=== PATIENT | female | born 1990 ===

== ENCOUNTER 2018-10-24 05:37 | Inpatient (IN) | payer OTHER ==
[~2018-10-24] VITALS: Ht 152.4 cm; Wt 61.7 kg
[2018-10-24] VITALS (17 sets, daily range): BP systolic 88–118; BP diastolic 50–84
[~2018-10-24 05:37] MED LIST: NKM
--- NOTE | 2018-10-24 06:37 | Anethesia Preoperative Eval ---
Anesthesia Pre-op PMH/ROS General Date of Evaluation: Oct 24, 2018 Anesthesiologist: Luis ASA Score: ASA 2 Mallampati Score Class I : Soft palate, uvula, fauces, pillars visible Class II: Soft palate, uvula, fauces visible Class III: Soft palate, base of uvula visible Class IV: Only hard plate visible Mallampati Classification: Class II Surgeon: Waldo Diagnosis: Bilateral buttock cellulitis Surgical Procedure: I&D Bilateral buttock Anesthesia History: none Family History: no anesthesia problems Allergies: Coded Allergies: No Known Allergies (Unverified , 10/23/18) Patient NPO?: Yes NPO Date: Oct 23, 2018 NPO Time: 1900 Past Medical History Cardiovascular: Denies: HTN, CAD, DC, valve dz, arrhythmia, other Pulmonary: Denies: asthma, COPD, STEPHANIE, other Gastrointestinal/Genitourinary: Denies: GERD, CRI, ESRD, other Neurologic/Psychiatric: Reports: depression/anxiety; Denies: dementia, CVA, TIA, other Endocrine: Denies: DM, hypothyroidism, steroids, other HEENT: Denies: cataract (L), cataract (R), glaucoma, KOOTENAI (L), KOOTENAI (R), other Hematology/Immune: Denies: anemia, DVT, bleeding disorder, other Musculoskeletal/Integumentary: Denies: OA, RA, DJD, DDD, edema, other PSxH Narrative: bilateral breast augmentation Anesthesia Pre-op Phys. Exam Physician Exam Last Vital Signs Date Time Temp Pulse Resp B/P (MAP) Pulse Ox O2 Delivery O2 Flow Rate FiO2 10/24/18 06:30 98.5 83 18 106/64 (78) 98 Constitutional: NAD Cardiovascular: RRR Respiratory: CTA Airway Exam Mallampati Score: Class II MO: full ROM: full Teeth: intact Anesthesia Pre-op A/P Labs see chart Studies Pre-op Studies: EKG - sr Risk Assessment & Plan Assessment: ASA II Plan: GA Status Change Before Surgery: No Pre-Antibiotics Drug: TBD Given Within 1 Hr of Incision: Yes Aure Holm MD Oct 24, 2018 06:37
[2018-10-24] MEDS ORDERED: fentaNYL 100 mcg/2 mL IV ONE (06:56)
[2018-10-24] MEDS ORDERED: Lidocaine 1% MPF 10mg/ml 5ml ONE (06:56)
[2018-10-24] MEDS ORDERED: Propofol 200mg/20ml IV ONE (06:56)
[2018-10-24] MEDS ORDERED: LR 1000ml ONE ×2 (07:00→15:31)
[2018-10-24] MEDS ORDERED: Sterile Water Irrig 1000ml IRRIG ONE (07:00)
[2018-10-24] MEDS ORDERED: NS Irrig 2000ml IRRIG ONE (07:00)
[2018-10-24] MEDS ORDERED: NS Irrig 1000ml ONE (07:00)
[2018-10-24] MEDS ORDERED: NeoSporin Gu Irrig 1ml Amp IRRIG ONE (07:05)
[2018-10-24] MEDS ORDERED: Bacitracin 50000 Units Vial ONE (07:05)
[2018-10-24] MEDS ORDERED: LR 1000ml 1,000 ML IVLG SCH (07:10)
[2018-10-24] MEDS ORDERED: Hydromorphone 0.5mg/0.5ml inj IVP PRN (07:15)
[2018-10-24] MEDS ORDERED: Ketorolac 30mg Inj IV PRN (07:15)
[2018-10-24] MEDS ORDERED: fentaNYL 100 mcg/2 mL IV PRN (07:15)
[2018-10-24] MEDS ORDERED: Midazolam 2mg/2ml Inj IVP PRN (07:15)
[2018-10-24] MEDS ORDERED: Metoclopramide 10mg/2ml Inj IVP PRN (07:15)
[2018-10-24] MEDS ORDERED: DiphenhydrAMINE 50mg/ml Inj IVP PRN ×2 (07:15→08:45)
[2018-10-24] MEDS ORDERED: LORazepam Inj 2mg/ml 1ml IV PRN (07:15)
[2018-10-24] MEDS ORDERED: Dexamethasone 4mg/ml vial ONE (07:16)
--- NOTE | 2018-10-24 07:27 | Pre-Procedure Note/Attestation ---
Pre-Procedure Note/Attestation Complete Prior to Procedure Planned Procedure: bilateral Procedure Narrative: staged debridement of bilateral buttock and back necrotic soft tissue. flap delay and vac placement Indications for Procedure Pre-Operative Diagnosis: b/l buttock and back necrotic soft tissues, cellulitis Attestation I attest that I discussed the nature of the procedure; its benefits; risks and complications; and alternatives (and the risks and benefits of such alternatives ), prior to the procedure, with the patient (or the patient's legal insurance claims representative). I attest that, if there was a reasonable possibility of needing a blood transfusion, the patient (or the patient's legal insurance claims representative) was given the [place] [facility] standardized written summary, pursuant to the Gregory Chandu Blood Safety Act ([place] Health and Safety Code # 1645, as amended). I attest that I re-evaluated the patient just prior to the surgery and that there has been no change in the patient's H&P, except as documented below: Stacie Haas M.D. Oct 24, 2018 07:27
--- NOTE | 2018-10-24 08:32 | Operative Note - PDOC ---
Operative Note Operative Note Date of Operation/Procedure: Oct 24, 2018 Pre-op Diagnosis: b/l buttock and back necrotic soft tissues, cellulitis Procedure: staged debridement of bilateral necrotic buttock and back necrotic soft tissue, flap delay and wound vac placement Post-op Diagnosis: same Post-op Diagnosis: same as pre-op Surgeon: lalita Fruit Dumper: rona Anesthesiologist: sivakumar Anesthesia: general Specimen: yes - bilateral buttock and back necrotic soft tissue Complications: none Condition: stable Estimated Blood Loss: volume - 250 Drains: wound vac Implant(s) used?: No Indications for Procedure symptomatic necrotic soft tissue, cellulitis Description of Procedure see dictation Stacie Haas M.D. Oct 24, 2018 08:32
[2018-10-24] MEDS: LR 1000ml 1,000 ML IV SCH ×3 (08:45→23:23)
[2018-10-24] MEDS ORDERED: Naloxone 0.4mg/ml Inj IVP PRN (08:45)
[2018-10-24] MEDS ORDERED: PCA HYDROmorphone 1mg/ml 30 ML IV PRN (08:45)
[2018-10-24] MEDS ORDERED: Rate Change PCA 1 Each MISC PRN (08:45)
[2018-10-24] MEDS ORDERED: LORazepam 1mg tab ORAL PRN (08:45)
[2018-10-24] MEDS ORDERED: PCA Education Pamphlet MISC ONE (08:45)
--- NOTE | 2018-10-24 08:53 | Immediate Post-Op Evaluation ---
Immediate Post-Op Evalulation Immediate Post-Op Evalulation Procedure: Bilateral buttock I&D Date of Evaluation: Oct 24, 2018 Time of Evaluation: 08:54 IV Fluids: 1L Blood Products: 0 Estimated Blood Loss: 25 Urinary Output: 150 Blood Pressure Systolic: 88 Blood Pressure Diastolic: 55 Pulse Rate: 83 Respiratory Rate: 16 O2 Sat by Pulse Oximetry: 100 Temperature (Fahrenheit): 97.8 Pain Score (1-10): 0 Nausea: No Vomiting: No Complications 0 Patient Status: awake, reacts, patent, none Hydration Status: adequate Drug: Ancef 1g Given Within 1 Hr of Incision: Yes Time Given: 07:30 Aure Holm MD Oct 24, 2018 08:53
--- NOTE | 2018-10-24 10:10 | NUR ---
NURSE NOTES: Patient received to 312-1 via bed s/p bilateral buttocks debridement. Patient positioned to left side with pillows. O2 2L per NC 100%, Patient alert, oriented x4, calm, family member at bedside. Right hand IV infusing as ordered, ACTIVITIES COUNSELOR (Diladud) in place, patient verbalized understanding on use. Buttocks dressings intact with wound vacs in place, no output to left side and bloody output noted to right side. Matthews draining yellow clear urine, to gravity. Bilateral SCDs on. Patient instructed on position orders. Call light in reach. Incentive spirometer ordered. Vitals stable. Will continue to assess.
--- NOTE | 2018-10-24 14:14 | History & Physical ---
History and Physical History & Physicial dictated #[id number] Steven Marie MD Oct 24, 2018 14:14
[2018-10-24] MEDS: Ampicillin/Sulbactam Sod 3 GM in NS 110 ML IVPB SCH ×2 (14:15→23:18)
[2018-10-24] MEDS: Heparin 5000 units/ml inj SUBQ SCH ×2 (14:33→23:21)
[2018-10-24] MEDS ORDERED: Tubing IV Secondary IV ONE (15:31)
--- NOTE | 2018-10-24 15:47 | NUR ---
CASE MANAGEMENT:REVIEW 10/24/18 SI: MUNDO BUTTOCK AND BACK NECROTIC SOFT TISSUES, CELLULITIS 98.5 83 18 106/64 98% ON RA IS; TO SURGERY: STAGED DEBRIDEMENT, FLAP DELAY AND WOUND VAC PLACEMENT CHILD ADOLESCENT PSYCHIATRIST DILAUDID IV AMPICILLIN Q8HRS HEPARIN SQ Q8HRS : TO MED/SURG UNIT 3 [facility] MET
[2018-10-24] MEDS: PCA shift volume MISC SCH (19:00)
--- NOTE | 2018-10-24 19:00 | History and Physical Report ---
DATE OF ADMISSION: 10/24/2018 HISTORY OF PRESENT ILLNESS: This is a 28-year-old female with history of silicone injections over her gluteal area with chronic lower back pain, who was admitted for bilateral buttocks incision and drainage. The patient underwent bilateral buttocks incision and drainage and had some cellulitis and pain over lower gluteal region. She is on a SAMPLE PROCESSOR pump and her pain is moderately controlled. The patient apparently has a longstanding history of lower back pain and gluteal pain as well as weakness in her legs at times since having these silicone injections. PAST MEDICAL HISTORY: None. PAST SURGICAL HISTORY: Breast augmentation and silicone injections in the gluteal region. PAST SOCIAL HISTORY: The patient smokes marijuana. No cigarettes. Alcohol occasionally. No other drugs. ALLERGIES: No known drug allergies. MEDICATIONS: None. REVIEW OF SYSTEMS: Twelve-point review of systems negative except for pertinent positives as mentioned above. PHYSICAL EXAMINATION: VITAL SIGNS: Temperature is 98.7, pulse is 69, respiratory rate 19, blood pressure 99/62, O2 saturation is 100% on room air. GENERAL: No acute distress. The patient is alert, awake, and oriented x3. HEENT: Normocephalic/atraumatic. NECK: Supple. No JVD. LUNGS: Clear to auscultation bilaterally. No crackles, rhonchi, or rales. CARDIOVASCULAR: Regular rate and rhythm. Normal S1, S2. ABDOMEN: Soft, nontender, and nondistended. EXTREMITIES: No clubbing, cyanosis, or edema. SKIN: Gluteal region, the patient has a wound VAC over her gluteal region with no bleeding. She does have some tenderness to palpation and a little bit of mild swelling bilaterally. LABORATORY DATA: No laboratories. ASSESSMENT: Bilateral gluteal and lower back necrotic soft tissue and cellulitis, status post staged debridement of bilateral necrotic gluteal tissue and lower back necrotic soft tissue with wound VAC placement. PLAN: 1. Med/Surg. 2. Plastic Surgery following. 3. IV fluids NS at 125 mL/hour. 4. The patient's pain is under control with SAMPLE PROCESSOR pump. 5. Antibiotics - ampicillin/sulbactam. 6. We will order blood markers for tissue necrosis. 7. Plan for staged debridement of wound on Sunday. Steven Marie MD DR: Shai JOB#: [id number] CC:
--- NOTE | 2018-10-24 19:55 | NUR ---
HAND-OFF: Report given to Ayaz GONZALES, pt in stable condition. Total would vac output right side:250ml Total wound vac output left side: 150ml.
[2018-10-25] VITALS: BP 97/51
--- NOTE | 2018-10-25 | NUR ---
NURSE NOTES:Patient received from Ayaz Damon patient in bed A/A/AOX4. family at bedside . patient denies any pain at this time . no sob/no n/v noted. patient on O2 2 liters via n/c in place . RH #20 LR @ 125 CC/HR. infusing well patient on MIG TIG WELDER( Dilaudid in place. patient instructed to push the button when needed. patient verbalized understanding. bilateral buttock dressing C/D/ I with wound vac in placed . right 125 mmHg - mild dry and intact Sero sanguinous drainage noted and left 124 mmHg - mild dry and intact no output ,patient on scds in place . patient encourage to use IS . Patient tolerated well .call light within reach . bed in low position at all times . will continue to monitor .
--- NOTE | 2018-10-25 | NUR ---
MARCELINA MOTORCYCLE REPAIR SHOP SUPERVISOR
[2018-10-25 04:00] VITALS: BP 98/61
[2018-10-25] MEDS: Ampicillin/Sulbactam Sod 3 GM in NS 110 ML IVPB SCH ×3 (05:30→22:28)
[2018-10-25] MEDS: Heparin 5000 units/ml inj SUBQ SCH ×3 (05:31→22:28)
--- NOTE | 2018-10-25 06:00 | NUR ---
NURSE NOTES: Patient bilateral buttocks dressing C/D/I With wound vac on the right draining serosanguineous 250 cc output and on the left draining serosanguineous output 380cc. zamora cath d/cd 1,680 cc
--- NOTE | 2018-10-25 07:25 | NUR ---
HAND-OFF: Report given to Dee Dee DamonAND Endorsed to follow up Patient voiding.
[2018-10-25] MEDS: PCA shift volume MISC SCH ×2 (07:28→19:21)
[2018-10-25 07:36] LABS: BASOPHILS % (AUTO) 0.7 % (0.0-2.0); EOSINOPHILS % (AUTO) 0.4 % (0.0-3.0); HEMATOCRIT 29.4 % (37.0-47.0); HEMOGLOBIN 9.9 G/DL (12.0-16.0); LYMPHOCYTES % (AUTO) 18.7 % (20.0-45.0); MEAN CORPUSCULAR VOLUME 95 FL (80-99); MONOCYTES % (AUTO) 8.8 % (1.0-10.0); NEUTROPHILS % (AUTO) 71.4 % (45.0-75.0); PLATELET COUNT 242 K/UL (150-450); RED BLOOD COUNT 3.11 M/UL (4.20-5.40); RED CELL DISTRIBUTION WIDTH 11.4 % (11.6-14.8); WHITE BLOOD COUNT 9.2 K/UL (4.8-10.8)
[2018-10-25 07:49] LABS: ANION GAP 5 mmol/L (5-15); BLOOD UREA NITROGEN 10 mg/dL (7-18); CALCIUM 8.1 MG/DL (8.5-10.1); CARBON DIOXIDE 29 MMOL/L (21-32); CHLORIDE 106 MMOL/L (98-107); CREATININE 0.9 MG/DL (0.55-1.30); POTASSIUM 3.6 MMOL/L (3.5-5.1); SODIUM 140 MMOL/L (136-145)
[2018-10-25 08:00] VITALS: BP 131/76
--- NOTE | 2018-10-25 08:00 | NUR ---
NURSE NOTES: Received report from Kelly ALVAREZ. pt a/a/o x4 laying in bed with no signs of distress or other issues at this time. bilateral wound vacs in place draining well per production supervisor off shift nurse total out put on the right side #1: 250ml, left side #2: 380ml. total Zamora output: 1680ml. Jesse GONZALES removed zamora cath at 0700. RN will monitor for post void. Iv on the right hand gauge #20 running LR @125ml. METAL FABRICATING INSPECTOR in place with Dilaudid, total syringe: 23ml. pt in a regular diet, pt tolerated well with no n/v. call light within reach. bed in lowest position. side rales up x2. I boyfriend at bedside. I will f/u as needed.
[2018-10-25] MEDS: LR 1000ml 1,000 ML IV SCH ×2 (08:45→16:45)
--- NOTE | 2018-10-25 09:15 | Pre-Procedure Note/Attestation ---
Pre-Procedure Note/Attestation Indications for Procedure Pre-Operative Diagnosis: b/l buttock and back necrotic soft tissues, cellulitis Attestation I attest that I discussed the nature of the procedure; its benefits; risks and complications; and alternatives (and the risks and benefits of such alternatives ), prior to the procedure, with the patient (or the patient's legal metals sales representative). I attest that, if there was a reasonable possibility of needing a blood transfusion, the patient (or the patient's legal metals sales representative) was given the [facility] standardized written summary, pursuant to the Gregory Chandu Blood Safety Act ([place] Health and Safety Code # 1645, as amended). I attest that I re-evaluated the patient just prior to the surgery and that there has been no change in the patient's H&P, except as documented below: Stacie Haas M.D. Oct 25, 2018 09:15
--- NOTE | 2018-10-25 09:17 | General Progress Note ---
Subjective Date patient seen: Oct 25, 2018 Time patient seen: 09:00 Allergies: Coded Allergies: No Known Allergies (Unverified , 10/23/18) Subjective pt doing well; reports resolution of preop local and systemic sxs (+) OOB AF,VSS PE: flaps viable; (-) collections (-)signs infections VACs appropraite H/H 08/13 A/P 1. cont IV abx, PHOTOGRAPHER LITHOGRAPHIC, OOB 2. freq position changes 3. cont vacs 4. daily labs 5. to OR sunday for staged debridement and flap closure over drains; NPO/IVF Sun at [place] Objective Last 24 Hour Vital Signs Date Time Temp Pulse Resp B/P (MAP) Pulse Ox O2 Delivery O2 Flow Rate FiO2 10/25/18 08:00 98.0 79 19 131/76 (94) 97 10/25/18 04:00 18 10/25/18 04:00 98.6 59 18 98/61 (73) 100 10/25/18 00:00 19 10/25/18 00:00 98.0 66 18 97/51 (66) 98 10/24/18 21:00 Room Air 10/24/18 20:00 19 10/24/18 20:00 97.7 65 19 110/55 (73) 97 10/24/18 16:00 98.2 90 19 100/54 (69) 98 10/24/18 12:40 98.4 84 19 106/69 (81) 99 10/24/18 11:40 98.7 69 19 99/62 (74) 100 10/24/18 11:10 98.7 65 18 88/55 (66) 100 10/24/18 10:42 19 10/24/18 10:40 98.5 66 19 109/69 (82) 100 10/24/18 10:25 99.2 66 19 105/70 (82) 100 10/24/18 10:10 97.7 65 18 113/72 (86) 100 10/24/18 10:05 19 10/24/18 09:55 97.8 74 18 102/65 99 Nasal Cannula 3 10/24/18 09:50 97.8 10/24/18 09:50 15 10/24/18 09:40 79 16 100/57 99 Nasal Cannula 3 10/24/18 09:35 18 10/24/18 09:30 72 15 111/63 99 Nasal Cannula 3 10/24/18 09:20 93 18 118/84 99 Nasal Cannula 3 10/24/18 09:20 18 Intake and Output 10/24/18 10/25/18 19:00 07:00 Intake Total 2375 ml 2455 ml Output Total 210 ml 2315 ml Balance 2165 ml 140 ml Intake Oral 1000 ml IV Total 2375 ml 1455 ml Output Urine Total 150 ml 1680 ml Drainage Total 10 ml 635 ml Estimated Blood Loss 50 ml Laboratory Tests 10/25/18 07:00: White Blood Count 9.2, Red Blood Count 3.11L, Hemoglobin 9.9L, Hematocrit 29.4L , Mean Corpuscular Volume 95, Mean Corpuscular Hemoglobin 31.7H, Mean Corpuscular Hemoglobin Concent 33.6, Red Cell Distribution Width 11.4L, Platelet Count 242, Mean Platelet Volume 7.3, Neutrophils (%) (Auto) 71.4, Lymphocytes (%) (Auto) 18.7L, Monocytes (%) (Auto) 8.8, Eosinophils (%) (Auto) 0.4, Basophils (%) (Auto) 0.7, Sodium Level 140, Potassium Level 3.6, Chloride Level 106, Carbon Dioxide Level 29, Anion Gap 5, Blood Urea Nitrogen 10, Creatinine 0.9, Estimat Glomerular Filtration Rate > 60, Glucose Level 89, Calcium Level 8.1L Height (Feet): 5 Height (Inches): 0.00 Weight (Pounds): 123 Stacie Haas M.D. Oct 25, 2018 09:17
--- NOTE | 2018-10-25 10:00 | NUR ---
NURSE NOTES: During rounds, pt was able to void with no issues. we will f/u as needed.
[2018-10-25 12:00] VITALS: BP 105/62
--- NOTE | 2018-10-25 15:16 | 48 Hour Post Anesthesia Eval ---
Post Anesthesia Evaluation Procedure: Bilateral buttock I&D Date of Evaluation: Oct 25, 2018 Time of Evaluation: 15:15 Blood Pressure Systolic: 105 0: 72 Pulse Rate: 68 Respiratory Rate: 22 Temperature (Fahrenheit): 97.6 O2 Sat by Pulse Oximetry: 98 Airway: patent Nausea: No Vomiting: No Pain Intensity: 2 Hydration Status: adequate Cardiopulmonary Status: stable Mental Status/LOC: patient returned to baseline Follow-up Care/Observations: n/a Post-Anesthesia Complications: none Follow-up care needed: N/A Filipe Renteria MD Oct 25, 2018 15:16
[2018-10-25 16:00] VITALS: BP 92/57
--- NOTE | 2018-10-25 19:30 | NUR ---
NURSE NOTES: Received patient in bed, awake, alert, oriented, on a BUCKLE INSPECTOR pump w Dilaudid, tolerating well, patient is in no acute distress, on RA, ambulatory, has bilateral wound vac. Bed is in low position, locked and alarm is on, call light is within reach. Will continue to monitor for safety and comfort.
--- NOTE | 2018-10-25 20:04 | NUR ---
HAND-OFF: Report given to Christi GONZALES, pt in stable condition. total wound vac right#1: 150ml total wound vac left#2:125ml - During my shift pt was able to ambulate around the unit x2 with steady gait.
[2018-10-25 20:41] VITALS: BP 112/57
[2018-10-26] VITALS: BP 108/59
[2018-10-26] MEDS: LR 1000ml 1,000 ML IV SCH ×4 (00:42→22:29)
--- NOTE | 2018-10-26 01:01 | Internal Med Progress Note ---
Subjective Physician Name CynthiaSteven Attending Physician Stacie Haas M.D. Current Medications Medications (Trade) Dose Ordered Sig/Jong Route PRN Reason Start Time Stop Time Status Last Admin Dose Admin Ampicillin Sodium/ Sulbactam Sodium 3 gm/Sodium Chloride 110 ml @ 220 mls/hr Q8HR IVPB 10/24/18 14:00 10/31/18 13:59 10/25/18 22:28 Diphenhydramine HCl (Benadryl) 25 mg Q6H PRN IVP Itching/Pruritis 10/24/18 08:45 10/26/18 08:44 Heparin Sodium (Porcine) (Heparin 5000 units/ml) 5,000 units EVERY 8 HOURS SUBQ 10/24/18 14:00 11/23/18 13:59 10/25/18 22:28 Hydromorphone HCl 30 ml @ 0 mls/hr Q24H PRN IV For Pain 10/24/18 08:45 10/26/18 08:44 10/24/18 09:20 Lactated Ringer's 1,000 ml @ 125 mls/hr Q8H IV 10/24/18 08:45 11/23/18 08:44 10/26/18 00:42 Lorazepam (Ativan) 1 mg Q4H PRN ORAL Muscle Spasm 10/24/18 08:45 10/26/18 08:44 Miscellaneous Medication (ZONING ADMINISTRATOR Rate Change) 1 ea DAILY PRN MISC rate change 10/24/18 08:45 10/26/18 08:44 Miscellaneous Medication (ZONING ADMINISTRATOR shift volume) 1 ea Q12HR@0700,1900 MISC 10/24/18 19:00 10/26/18 18:59 10/25/18 19:21 Naloxone HCl (Narcan) 0.1 mg Q1M PRN IVP RR<10/min OR SBP<90 mmHg 10/24/18 08:45 10/26/18 08:44 Ondansetron HCl (Zofran) 4 mg Q6H PRN IVP Nausea & Vomiting 10/24/18 08:45 10/26/18 08:44 10/25/18 11:08 Temazepam (Restoril) 7.5 mg HSPRN PRN ORAL Insomnia 10/24/18 08:45 10/26/18 08:44 10/25/18 23:52 Allergies: Coded Allergies: No Known Allergies (Unverified , 10/23/18) All Systems: reviewed and negative except above - mild glutealpain Objective Last Vital Signs Date Time Temp Pulse Resp B/P (MAP) Pulse Ox O2 Delivery O2 Flow Rate FiO2 10/26/18 00:17 18 10/26/18 00:00 98.1 57 108/59 (75) 98 10/25/18 21:00 Room Air 10/24/18 09:55 3 General Appearance: no apparent distress, alert EENT: normal ENT inspection, TMs normal Neck: supple, normal inspection Cardiovascular: regular rhythm, regularly irregular Respiratory/Chest: lungs clear, normal breath sounds Abdomen: non tender, soft Extremities: normal range of motion, non-tender Skin: other - wound vac over gluteal wound Laboratory Tests Test 10/25/18 07:00 White Blood Count 9.2 K/UL (4.8-10.8) Red Blood Count 3.11 M/UL (4.20-5.40) L Hemoglobin 9.9 G/DL (12.0-16.0) L Hematocrit 29.4 % (37.0-47.0) L Mean Corpuscular Volume 95 FL (80-99) Mean Corpuscular Hemoglobin 31.7 PG (27.0-31.0) H Mean Corpuscular Hemoglobin Concent 33.6 G/DL (32.0-36.0) Red Cell Distribution Width 11.4 % (11.6-14.8) L Platelet Count 242 K/UL (150-450) Mean Platelet Volume 7.3 FL (6.5-10.1) Neutrophils (%) (Auto) 71.4 % (45.0-75.0) Lymphocytes (%) (Auto) 18.7 % (20.0-45.0) L Monocytes (%) (Auto) 8.8 % (1.0-10.0) Eosinophils (%) (Auto) 0.4 % (0.0-3.0) Basophils (%) (Auto) 0.7 % (0.0-2.0) Sodium Level 140 MMOL/L (136-145) Potassium Level 3.6 MMOL/L (3.5-5.1) Chloride Level 106 MMOL/L (98-107) Carbon Dioxide Level 29 MMOL/L (21-32) Anion Gap 5 mmol/L (5-15) Blood Urea Nitrogen 10 mg/dL (7-18) Creatinine 0.9 MG/DL (0.55-1.30) Estimat Glomerular Filtration Rate > 60 mL/min (>60) Glucose Level 89 MG/DL (74-106) Calcium Level 8.1 MG/DL (8.5-10.1) L Intake and Output 10/25/18 10/26/18 19:00 07:00 Intake Total 1055 ml 735 ml Balance 1055 ml 735 ml Intake Oral 930 ml IV Total 125 ml 735 ml # Voids 2 Assessment/Plan Assessment/Plan ASSESSMENT: Bilateral gluteal and lower back necrotic soft tissue and cellulitis, status post staged debridement of bilateral necrotic gluteal tissue and lower back necrotic soft tissue with wound VAC placement. PLAN: 1. Med/Surg. 2. Plastic Surgery following. 3. IV fluids NS at 125 mL/hour. 4. The patient's pain is under control with ZONING ADMINISTRATOR pump. 5. Antibiotics - ampicillin/sulbactam. 6. We will order blood markers for tissue necrosis. 7. Plan for staged debridement of wound on Sunday. Steven Marie MD Oct 26, 2018 01:01
[2018-10-26 04:00] VITALS: BP 93/51
[2018-10-26] MEDS: Ampicillin/Sulbactam Sod 3 GM in NS 110 ML IVPB SCH ×3 (05:52→22:20)
[2018-10-26] MEDS: Heparin 5000 units/ml inj SUBQ SCH ×3 (05:54→22:21)
[2018-10-26] MEDS: PCA shift volume MISC SCH ×2 (07:20→19:00)
--- NOTE | 2018-10-26 07:37 | NUR ---
HAND-OFF: Report given to Osito GONZALES.
[2018-10-26 07:38] LABS: BASOPHILS % (AUTO) 1.1 % (0.0-2.0); EOSINOPHILS % (AUTO) 2.8 % (0.0-3.0); HEMATOCRIT 28.2 % (37.0-47.0); HEMOGLOBIN 9.5 G/DL (12.0-16.0); LYMPHOCYTES % (AUTO) 36.3 % (20.0-45.0); MEAN CORPUSCULAR VOLUME 95 FL (80-99); MONOCYTES % (AUTO) 9.6 % (1.0-10.0); NEUTROPHILS % (AUTO) 50.2 % (45.0-75.0); PLATELET COUNT 228 K/UL (150-450); RED BLOOD COUNT 2.97 M/UL (4.20-5.40); RED CELL DISTRIBUTION WIDTH 11.3 % (11.6-14.8)
--- NOTE | 2018-10-26 07:43 | NUR ---
NURSE NOTES: Received pt from JANET Barraza, pt was eating no acute distress, pain management with BANKRUPTCY LAW SPECIALIST, wound vac in place, call light w/in reach.
[2018-10-26 07:56] LABS: ANION GAP 9 mmol/L (5-15); BLOOD UREA NITROGEN 9 mg/dL (7-18); CALCIUM 8.4 MG/DL (8.5-10.1); CARBON DIOXIDE 28 MMOL/L (21-32); CHLORIDE 103 MMOL/L (98-107); POTASSIUM 3.5 MMOL/L (3.5-5.1); SODIUM 140 MMOL/L (136-145)
[2018-10-26 08:00] VITALS: BP 85/56
[2018-10-26] MEDS ORDERED: PCA HYDROmorphone 1mg/ml 30 ML IV PRN (09:27)
[2018-10-26] MEDS ORDERED: Rate Change PCA 1 Each MISC PRN (09:30)
[2018-10-26] MEDS ORDERED: LORazepam 1mg tab ORAL PRN (09:30)
[2018-10-26] MEDS ORDERED: Naloxone 0.4mg/ml Inj IVP PRN (09:30)
[2018-10-26] MEDS ORDERED: PCA Education Pamphlet MISC ONE (09:30)
[2018-10-26] MEDS ORDERED: DiphenhydrAMINE 50mg/ml Inj IVP PRN (09:30)
[2018-10-26 12:00] VITALS: BP 110/60
[2018-10-26 16:00] VITALS: BP 110/60
[2018-10-26 20:00] VITALS: BP 113/49
--- NOTE | 2018-10-26 20:30 | NUR ---
HAND-OFF: Report given to JANET Batista, pt is stable condition.
--- NOTE | 2018-10-26 20:35 | NUR ---
NURSE NOTES: patient received. patient in no acute distress at this time. patient complains of no pain at this time. patient awake and oriented x4. COORDINATE MEASURING MACHINE OPERATOR intact and patient educated on COORDINATE MEASURING MACHINE OPERATOR use. IV intact and patent. wound vac on bilat buttocks draining and intact. bed in lowest position adn locked. call lgith within reach. will continue to monitor.
[2018-10-27] MEDS: LR 1000ml 1,000 ML IV SCH ×4 (02:51→21:46)
[2018-10-27 04:00] VITALS: BP 102/45
[2018-10-27] MEDS: Heparin 5000 units/ml inj SUBQ SCH ×3 (05:44→21:39)
[2018-10-27] MEDS: Ampicillin/Sulbactam Sod 3 GM in NS 110 ML IVPB SCH ×3 (05:45→21:35)
[2018-10-27 07:28] LABS: BASOPHILS % (AUTO) 0.6 % (0.0-2.0); EOSINOPHILS % (AUTO) 2.7 % (0.0-3.0); HEMATOCRIT 28.5 % (37.0-47.0); HEMOGLOBIN 9.9 G/DL (12.0-16.0); LYMPHOCYTES % (AUTO) 21.6 % (20.0-45.0); MEAN CORPUSCULAR VOLUME 94 FL (80-99); MONOCYTES % (AUTO) 8.1 % (1.0-10.0); PLATELET COUNT 234 K/UL (150-450); RED BLOOD COUNT 3.05 M/UL (4.20-5.40); RED CELL DISTRIBUTION WIDTH 11.5 % (11.6-14.8); WHITE BLOOD COUNT 6.2 K/UL (4.8-10.8)
[2018-10-27] MEDS: PCA shift volume MISC SCH ×2 (07:30→19:19)
--- NOTE | 2018-10-27 07:34 | NUR ---
NURSE NOTES: awake/alert. pain scale 6/10. on appliance line assembler dilaudid. wound vac bilateral buttocks in place draining sersanguinous drainage. in no apparent distress.
--- NOTE | 2018-10-27 07:39 | NUR ---
HAND-OFF: Report given to JANET arnett.
[2018-10-27 08:00] VITALS: BP 99/59
[2018-10-27 08:04] LABS: ANION GAP 8 mmol/L (5-15); BLOOD UREA NITROGEN 9 mg/dL (7-18); CALCIUM 8.7 MG/DL (8.5-10.1); CARBON DIOXIDE 27 MMOL/L (21-32); CHLORIDE 103 MMOL/L (98-107); CREATININE 0.9 MG/DL (0.55-1.30); POTASSIUM 3.7 MMOL/L (3.5-5.1); SODIUM 138 MMOL/L (136-145)
--- NOTE | 2018-10-27 09:27 | NUR ---
NURSE NOTES: OOB AMBUALTED OUT IN THE BENDER WITH ASSIST TOLERATED.
[2018-10-27] MEDS ORDERED: LR 1000ml ONE (09:37)
[2018-10-27 12:00] VITALS: BP 93/57
--- NOTE | 2018-10-27 15:12 | NUR ---
NURSE NOTES: ambulated out im the negrete with assist tolerated.
[2018-10-27 16:00] VITALS: BP 97/63
--- NOTE | 2018-10-27 16:12 | NUR ---
CASE MANAGEMENT:REVIEW 10/26/2018 SI: MUNDO BUTTOCK AND BACK NECROTIC SOFT TISSUES, CELLULITIS T 98.9 HR 77 RR 18 B/P 85/56 SATS 99% ON RA CA 8.4 IS:LR @ 125 mL/HR EPIDEMIOLOGIST PER PARAMETERS UNASYN IV Q8H : TO MED/SURG UNIT 3 [facility] 10/27/2018 SI: MUNDO BUTTOCK AND BACK NECROTIC SOFT TISSUES, CELLULITIS T 98.5 HR 65 RR 18 B/P 93/57 SATS 99% ON RA LABS WNL IS:LR @ 125 mL/HR EPIDEMIOLOGIST PER PARAMETERS UNASYN IV Q8H MED/SURG PLAN OF CARE: PAIN MANAGEMENT IV ANTIBx
--- NOTE | 2018-10-27 19:23 | NUR ---
HAND-OFF: Report given to lc rios rn.
--- NOTE | 2018-10-27 19:30 | NUR ---
NURSE NOTES: Received report & pt JANET Centeno. Pt lying in bed, a&ox4, in room air. No s/s of acute distress & c/o 6/10 pain at this time. SHIRT OPERATOR settings checked with AM nurse. IV site intact with IVF running as ordered. Wound vac x 2 intact & draining serosanguineous output, both to continuous suction @ 125 mmHg. Surgical dressing & wound vac dressing C/D/I. Bed in lowest position, SHIRT OPERATOR pump & call light within reach. Will continue to monitor. Addendum: 10/28/18 at 0326 by Carina Restrepo RN CORRECTION: #1 on Left 100 mmHg & #2 on Right 125 mmHg
[2018-10-27 20:00] VITALS: BP 124/74
--- NOTE | 2018-10-27 20:46 | General Progress Note ---
Subjective Date patient seen: Oct 27, 2018 Time patient seen: 20:30 Allergies: Coded Allergies: No Known Allergies (Unverified , 10/23/18) Subjective pt doing well; reports resolution of preop local and systemic sxs (+) OOB AF,VSS PE: flaps viable; (-) collections (-)signs infections VACs appropraite H/H 1030 and stable A/P 1. cont IV abx, DROP WIRE ALIGNER, OOB 2. freq position changes 3. cont vacs 4. to OR in am for staged debridement and flap closure over drains; NPO/IVF Sun at [place] [address]. dr rea will be covering for me from 10/28/18 on 6. pt to be d/c home on sun with home provena vac, 4 jps, anita teaching, cipro 500 bid x 14 days and percocet x 30 pills; no sitting; only 4 hrs /24 hrs on buttocks, max 2 hrs at a time 7. pt to follow up wt dr rea on sat 11/02/18 Objective Last 24 Hour Vital Signs Date Time Temp Pulse Resp B/P (MAP) Pulse Ox O2 Delivery O2 Flow Rate FiO2 10/27/18 16:00 18 10/27/18 16:00 99.5 63 18 97/63 (74) 98 18 10/27/18 12:00 18 10/27/18 12:00 98.5 65 18 93/57 (69) 99 10/27/18 08:11 Room Air 10/27/18 08:00 18 10/27/18 08:00 98.9 69 18 99/59 (72) 100 10/27/18 04:00 18 10/27/18 04:00 98.5 74 18 102/45 (64) 99 10/27/18 00:00 18 10/26/18 21:00 Room Air Intake and Output 10/26/18 10/27/18 19:00 07:00 Intake Total 260 ml Output Total 135 ml 170 ml Balance 125 ml -170 ml Intake Oral 260 ml Drainage Total 135 ml 170 ml # Voids 3 # Bowel Movements 1 Laboratory Tests 10/27/18 05:52: White Blood Count 6.2, Red Blood Count 3.05L, Hemoglobin 9.9L, Hematocrit 28.5L , Mean Corpuscular Volume 94, Mean Corpuscular Hemoglobin 32.5H, Mean Corpuscular Hemoglobin Concent 34.7, Red Cell Distribution Width 11.5L, Platelet Count 234, Mean Platelet Volume 6.7, Neutrophils (%) (Auto) 67.0, Lymphocytes (%) (Auto) 21.6, Monocytes (%) (Auto) 8.1, Eosinophils (%) (Auto) 2.7, Basophils (%) (Auto) 0.6, Sodium Level 138, Potassium Level 3.7, Chloride Level 103, Carbon Dioxide Level 27, Anion Gap 8, Blood Urea Nitrogen 9, Creatinine 0.9, Estimat Glomerular Filtration Rate > 60, Glucose Level 79, Calcium Level 8.7 Height (Feet): 5 Height (Inches): 0.00 Weight (Pounds): 123 Stacie Haas M.D. Oct 27, 2018 20:46
[2018-10-28] VITALS (17 sets, daily range): BP systolic 90–118; BP diastolic 52–69
[2018-10-28] MEDS: LR 1000ml 1,000 ML IV SCH ×4 (00:35→23:55)
[2018-10-28] MEDS: Heparin 5000 units/ml inj SUBQ SCH ×3 (06:00→21:03)
[2018-10-28] MEDS: Ampicillin/Sulbactam Sod 3 GM in NS 110 ML IVPB SCH ×3 (06:23→21:01)
[2018-10-28] MEDS ORDERED: Hydromorphone 0.5mg/0.5ml inj IVP PRN (06:30)
[2018-10-28] MEDS ORDERED: fentaNYL 100 mcg/2 mL IV PRN (06:30)
[2018-10-28] MEDS ORDERED: LORazepam Inj 2mg/ml 1ml IV PRN (06:30)
[2018-10-28] MEDS ORDERED: DiphenhydrAMINE 50mg/ml Inj IVP PRN ×2 (06:30→12:04)
[2018-10-28] MEDS ORDERED: HYDROcodone/Acetamin 7.5/325 tab ORAL PRN (06:30)
[2018-10-28] MEDS ORDERED: oxyCODONE HCL/Acetaminophen 5/325mg ORAL PRN (06:30)
[2018-10-28] MEDS ORDERED: Metoclopramide 10mg/2ml Inj IVP PRN (06:30)
[2018-10-28] MEDS ORDERED: Atropine Sulfate 0.4mg/ml inj IVP PRN (06:30)
[2018-10-28] MEDS ORDERED: Midazolam 2mg/2ml Inj IVP PRN (06:30)
[2018-10-28] MEDS ORDERED: Meperidine 50mg/ml Inj(FOR RIGORS ONLY) IVP PRN (06:30)
[2018-10-28] MEDS ORDERED: LR 1000ml 1,000 ML IVLG SCH (06:30)
[2018-10-28] MEDS ORDERED: Norco 5mg/325mg tab ORAL PRN (06:30)
--- NOTE | 2018-10-28 06:32 | Immediate Post-Op Evaluation ---
Immediate Post-Op Evalulation Immediate Post-Op Evalulation Procedure: Bilateral Buttock Closure, Stage 2 Date of Evaluation: Oct 28, 2018 Time of Evaluation: 10:05 IV Fluids: 1000 LR Blood Products: 0 Estimated Blood Loss: 150 Urinary Output: 0 Blood Pressure Systolic: 111 Blood Pressure Diastolic: 53 Pulse Rate: 79 Respiratory Rate: 16 O2 Sat by Pulse Oximetry: 100 Temperature (Fahrenheit): 97.9 Pain Score (1-10): 2 Nausea: No Vomiting: No Complications 0 Patient Status: awake, reacts, patent, extubated, none Hydration Status: adequate Dru Gram Ancef IV Given Within 1 Hr of Incision: Yes Time Given: 07:21 Rigoberto Luciano MD Oct 28, 2018 06:32
[2018-10-28] MEDS ORDERED: Zemuron 50mg/5ml Inj IV ONE (06:38)
--- NOTE | 2018-10-28 06:44 | NUR ---
NURSE NOTES: Pt picked up by Wilfredo roldan; ID band verified. pre-op checklist signed.
[2018-10-28] MEDS ORDERED: Dexamethasone 4mg/ml vial ONE (06:54)
[2018-10-28] MEDS ORDERED: Sodium Chloride 10ml vial INJ ONE (06:54)
[2018-10-28] MEDS ORDERED: Bacitracin 50000 Units Vial ONE ×2 (06:54→08:17)
[2018-10-28] MEDS ORDERED: Lidocaine 1% MPF 10mg/ml 5ml ONE (06:54)
[2018-10-28] MEDS ORDERED: Lidocaine 1% Plain 30 ml INJ ONE (06:55)
[2018-10-28] MEDS ORDERED: fentaNYL 100 mcg/2 mL IV ONE (06:55)
[2018-10-28] MEDS ORDERED: Propofol 1,000mg/ 100ml btl IV ONE (07:00)
[2018-10-28] MEDS: PCA shift volume MISC SCH ×2 (07:00→19:15)
[2018-10-28] MEDS ORDERED: LR 1000ml ONE ×2 (07:00→15:01)
[2018-10-28] MEDS ORDERED: Acetaminophen (Non formulary) 100 ML IV ONE (07:00)
[2018-10-28] MEDS ORDERED: oxyCONTIN 10mg tab ORAL PRN (07:15)
[2018-10-28] MEDS ORDERED: Naloxone 0.4mg/ml Inj IVP PRN (07:15)
[2018-10-28] MEDS ORDERED: LR 1000ml 1,000 ML IV SCH (07:15)
--- NOTE | 2018-10-28 07:30 | NUR ---
HAND-OFF: Report given to Charisse Foster RN.
--- NOTE | 2018-10-28 07:54 | NUR ---
NURSE NOTES: Received report from JANET Lim. Patient already off the unit.
[2018-10-28 08:10] LABS: BASOPHILS % (AUTO) 0.9 % (0.0-2.0); EOSINOPHILS % (AUTO) 3.9 % (0.0-3.0); HEMATOCRIT 30.5 % (37.0-47.0); HEMOGLOBIN 10.2 G/DL (12.0-16.0); LYMPHOCYTES % (AUTO) 24.9 % (20.0-45.0); MEAN CORPUSCULAR VOLUME 95 FL (80-99); NEUTROPHILS % (AUTO) 60.4 % (45.0-75.0); PLATELET COUNT 285 K/UL (150-450); RED BLOOD COUNT 3.22 M/UL (4.20-5.40); RED CELL DISTRIBUTION WIDTH 11.5 % (11.6-14.8); WHITE BLOOD COUNT 5.7 K/UL (4.8-10.8)
[2018-10-28 08:23] LABS: ANION GAP 6 mmol/L (5-15); BLOOD UREA NITROGEN 9 mg/dL (7-18); CALCIUM 8.9 MG/DL (8.5-10.1); CARBON DIOXIDE 29 MMOL/L (21-32); CHLORIDE 104 MMOL/L (98-107); CREATININE 0.9 MG/DL (0.55-1.30); POTASSIUM 4.1 MMOL/L (3.5-5.1); SODIUM 139 MMOL/L (136-145)
[2018-10-28] MEDS ORDERED: Glycopyrrolate 0.2mg/ml 1ml Vial ONE (09:23)
[2018-10-28] MEDS ORDERED: Neostigmine 1mg/ml 10ml Inj ONE (09:23)
--- NOTE | 2018-10-28 09:41 | Operative Note - PDOC ---
Operative Note Operative Note Pre-op Diagnosis: b/l buttock and back necrotic soft tissues, cellulitis Procedure: staged debridement of bilateral necrotic buttock and hip necrotic soft tissue, advancement flap closure Post-op Diagnosis: same Post-op Diagnosis: same as pre-op Surgeon: lalita Tape Maker: rona Anesthesiologist: leighton Anesthesia: general Specimen: yes - bilateral hips necrotic soft tissue Complications: none Condition: stable Estimated Blood Loss: volume - 300 Drains: VALERIE Implant(s) used?: No Indications for Procedure symptomatic soft tissue necrosis, cellulitis Description of Procedure see dictation Stacie Haas M.D. Oct 28, 2018 09:41
[2018-10-28] MEDS ORDERED: PCA Education Pamphlet MISC SCH (10:30)
[2018-10-28] MEDS ORDERED: PCA HYDROmorphone 1mg/ml 30 ML IV PRN (10:30)
[2018-10-28] MEDS ORDERED: Rate Change PCA 1 Each MISC PRN (10:30)
--- NOTE | 2018-10-28 11:30 | NUR ---
NURSE NOTES: Received report from Amanda CONSTRUCTION TECHNICIAN. Rounding done. Patient has wound vac and 4 of J/P drainage. Patient on SWINE NUTRITIONIST denies any pain at this time. Bed in lowest position and call light within reach. Will continue to monitor.
[2018-10-28] MEDS ORDERED: LORazepam 1mg tab ORAL PRN (12:04)
[2018-10-28] MEDS ORDERED: Tubing IV Secondary IV ONE (15:01)
--- NOTE | 2018-10-28 16:15 | Operative Note - Dictated ---
DATE OF OPERATION: 10/24/2018 SURGEON: Stacie Haas M.D. WIRE SPOOLER SURGEON: Bryce Quintero M.D. ANESTHESIOLOGIST: Aure Holm M.D. ANESTHESIA: General endotracheal tube anesthesia. PREOPERATIVE DIAGNOSES: 1. Bilateral buttock, hip, and back soft tissue necrosis secondary to foreign bodies. 2. Cellulitis of bilateral buttocks. POSTOPERATIVE DIAGNOSES: 1. Bilateral buttock, hip, and back soft tissue necrosis secondary to foreign bodies. 2. Cellulitis of bilateral buttocks. 3. . PROCEDURE PERFORMED: 1. Staged partial removal of foreign material from bilateral buttocks, back, and hips. 2. Elevation and delay of right inferiorly-based gluteal fasciocutaneous flap/adjacent tissue transfer/180 square centimeters. 3. Elevation and delay of left inferiorly-based gluteal fasciocutaneous flap/adjacent tissue transfer/225 square centimeters. 4. Elevation and delay of lumbar spine fasciocutaneous flap/adjacent tissue transfer/120 square centimeters. 5. Radical resection of 180 square centimeters of right buttock necrotic soft tissue mass. 6. Radical resection of 225 square centimeters of left buttock necrotic soft tissue mass. 7. Radical resection of 60 square centimeters of right back necrotic soft tissue mass. 8. Radical resection of 100 square centimeters of left back necrotic soft tissue mass. 9. Extensive debridement of bilateral necrotic gluteus deion muscles. 10. Pulse jet lavage irrigation of bilateral buttocks. 11. Wound VAC placement of bilateral buttocks. SPECIMENS: Specimens were four: 1. Left back necrotic soft tissue mass. 2. Right buttock necrotic soft tissue mass. 3. Left buttock necrotic soft tissue mass. 4. Right buttock necrotic soft tissue mass. ESTIMATED BLOOD LOSS: About 300 mL. COMPLICATIONS: None. CONDITION: Stable. DRAINS: Wound VAC to bilateral buttocks. INDICATION FOR PROCEDURE: This is a 28-year-old female who is scheduled today for staged partial removal and debridement of bilateral buttock, hip, and back necrotic soft tissues as well as fasciocutaneous flap delay and wound VAC placement. The patient has a history of some foreign material likely silicone injected to bilateral buttocks several years ago. The patient has had local as well as systemic complaints such as low back pain, buttock pain, burning and itching, bilateral lower extremity paresthesias, occasional shortness of breath, anxiety, and chronic fatigue. She has been worked up for ELLE SYNDROME and blood work is pending. Preoperatively, the patient was seen and optimized by her medical doctor. She was also seen by psychiatrist preoperatively so that she understands the following. 1. This is a partial staged removal of foreign material that was injected into her buttocks and hips and there is no guarantee that she would get better. 2. I do not know how much of the material I am going to take out but I am going to take out whatever is possible in a safe and effective manner. 3. There is a possibility that she may get worse in the future and the material may migrate and have already migrated and may continue to migrate in the future. 4. It is impossible for me to remove all of this and it is unknown how much I would take out but I would take out whatever safe and possible. 5. There is a possibility she could come out cosmetically disfiguring with a very poor cosmetic outcome. 6. The proposed benefits of the operation would be to debulk and remove as much of the foreign material as possible which will likely take the pressure off of her nerves of her spine, her legs, her buttocks and her back and relieve her pain and symptoms and should improve her immune system so she is not as prone to recurrent infections and opportunistic infections and hopefully will prevent further migration of the material to other parts of the body. The patient has low-grade chronic cellulitis as well as significant soft tissue hardening in areas of hyperpigmentation and erythema of bilateral buttocks and hips. MRIs which were done previously of the lumbar spine and pelvis showed significant soft tissue infiltration of bilateral buttocks and hips in subcutaneous tissue and significant involvement of bilateral gluteus deion muscles in the inferior portion and some anterior lateral migration to the hips. There was also migration up to L3 of the lumbar spine. The patient was reiterated that this could be cosmetically disfiguring, she may have poor scarring, her wounds may break down and she may need multiple reconstructive surgeries over the next many years and the buttocks may come out significantly deformed. I told her conversely if she did not think she is at risk for her whole buttocks necrosing which would require much more radical surgery. The possible risks of the operation including, but not limited to, bleeding, hematoma, infection, seroma, DVT, PE, PA, , necrosis of the skin flaps, open wounds, delayed healing, hypertrophic scarring, keloid scarring, skin necrosis, damage to sensory and motor nerves, difficulty ambulating, chronic pain and embolization of the silicone to other parts of the body were discussed with the patient and all questions were answered in the preop holding area. I correlated the patient's markings with the physical exam as well as MRI findings. DESCRIPTION OF PROCEDURE: The patient was taken the operating room prior to the induction of general anesthesia in the supine position. Perioperative antibiotics were given and SCDs were placed on bilateral lower extremities. She was then flipped in a prone position. After appropriate positioning and padding of her arms and the rest of the body, the markings were made symmetric and reinforced and the areas were prepped and draped in the usual clean and sterile manner. The anus was protected with a blue towel and Ioban dressing. We started the operation by making the incision with a #10 scalpel. We dissected all the way down through the skin with electrocautery down to the deep muscle fascia of the gluteus deion muscles and the paraspinal muscles. We then elevated and delayed three fasciocutaneous flaps. We elevated superiorly based lumbar fasciocutaneous flap about 10 centimeters superiorly and centrally correlating to the MRI as well as physical exam findings of fluctuant mass and tender mass in the lumbar spine. This flap was based on posterior intercostal artery perforating branches. We then elevated and delayed left and right inferiorly-based gluteal fasciocutaneous flaps in a plane just deep to the muscle fascia and these were based on inferior gluteal artery perforating branches for these flaps in a plane just deep to the muscle fascia. The deep muscle was cut with electrocautery. We then dissected the skin flap just in a plane just deep to Misha's fascia off of the elevated muscle flaps and then the necrotic soft tissue with a combination of sharp dissection and electrocautery were debrided and removed and this included fat necrosis, scar tissue, silicone granulomas from bilateral buttocks and back. There was significant involvement of the bilateral gluteus deion muscles and these had to be debrided with electrocautery and sharply. There was 60 square centimeters of left back, 60 square centimeters of right back, 180 square centimeters of right buttock and 225 square centimeters of left buttock necrotic soft tissue mass that was dissected off and this was a benign mass tumor like material that was taken out on block and this was sent to the laboratory for pathology. After doing this, we were left with a 180 square centimeter right buttock, a 225 square centimeter left buttock, and 120 square centimeters of bilateral back open wounds that was devoid of soft tissue that needed soft tissue coverage. We further delayed the 3 flaps above again by incising the deep muscle fascia of the above mentioned 3 fasciocutaneous flaps and they were advanced. We then performed adjacent tissue transfer to fill some of the areas that were devoid of soft tissue by doing a back cut and some of the soft tissue was rotated to close some of the defect. There was 180 square centimeters of the right buttock and 225 square centimeters of the left buttock and 120 square centimeters of the back. Adjacent tissue transfer was performed after a back cut and rotation of soft tissue to fill the space. We then pulse jet lavage three liters of antibiotic irrigation, ensured hemostasis with electrocautery and again there was a significant involvement of the gluteus deion muscles and these muscles were debrided and duarte-picked and any granulomas that were deep were removed in this way. After rechecking hemostasis and delaying the 3 flaps, we were quite pleased with initial debulking. There was about 300 mL of blood loss. We then placed wound VACs underneath the skin and set at mmHg, flipped the patient over, extubated, transferred to recovery room in a stable condition. Stacie Haas M.D. DR: Marisol JOB#: [id number] CC: KATERINE
--- NOTE | 2018-10-28 16:30 | Operative Note - Dictated ---
DATE OF OPERATION: 10/28/2018 SURGEON: Stacie Haas M.D. BANKING PARALEGAL SURGEON: Bryce Quintero M.D. ANESTHESIOLOGIST: Rigoberto Luciano M.D. ANESTHESIA: General endotracheal tube anesthesia. PREOPERATIVE DIAGNOSES: 1. Open bilateral buttock wounds status post radical debridement and resection of necrotic soft tissue masses from bilateral buttocks and back. 2. Bilateral buttock, hip and back soft tissue necrosis secondary to foreign bodies. 3. Cellulitis of bilateral buttocks. POSTOPERATIVE DIAGNOSES: 1. Open bilateral buttock wounds status post radical debridement and resection of necrotic soft tissue masses from bilateral buttocks and back. 2. Bilateral buttock, hip and back soft tissue necrosis secondary to foreign bodies. 3. Cellulitis of bilateral buttocks. PROCEDURES PERFORMED: 1. Staged partial removal of foreign bodies from bilateral buttocks and hips. 2. Radical resection of 300 square cm of right hip necrotic soft tissue mass. 3. Radical resection of 180 square cm of left hip necrotic soft tissue mass. 4. Debridement of bilateral gluteus deion necrotic muscles. 5. Lumbar spine fasciocutaneous advancement flap/adjacent tissue transfer/120 square cm. 6. Right gluteal fasciocutaneous advancement flap/adjacent tissue transfer/300 square cm. 7. Left gluteal fasciocutaneous advancement flap/adjacent tissue transfer/180 square cm. 8. Complex closure of 30 cm open back wound. 9. Prevena incisional wound VAC placement. 10. Pulse jet lavage irrigation of bilateral buttocks open wounds. FINDINGS: As above. SPECIMENS: 1. Left hip and buttock necrotic soft tissue mass. 2. Right hip and buttock necrotic soft tissue mass. ESTIMATED BLOOD LOSS: 300 mL. DRAINS: 19-Peruvian Jaspal x2 and 10 mm VALERIE x2 from bilateral buttocks. COMPLICATIONS: None. CONDITION: Stable. INDICATIONS FOR PROCEDURE: This is a 28-year-old female who I previously operated on four days ago. The patient has reported significant resolution of preoperative symptoms, both local and systemic. She has been treated with wound VAC therapy on the floor as well as intravenous antibiotics and has remained stable. Today, the plan was to take the patient back to the operating room for a planned second stage for further debridement of necrotic soft tissue from bilateral buttocks and hips as well as fasciocutaneous advancement flap/adjacent tissue transfer closure over drains. Risks and benefits of the operation were fully discussed with the patient in the previous operation and reiterated in the holding area today. The patient agreed to proceed and signed informed consent. All questions were answered. DESCRIPTION OF PROCEDURE: The patient was taken to the operating room in the supine position and placed under general endotracheal tube anesthesia. Perioperative antibiotics were given. SCDs were placed in bilateral lower extremities. After she was intubated, she was flipped into the prone position. After appropriate positioning and padding of her arms and the rest of the body, we removed the wound VAC. The area was prepped and draped in usual clean and sterile manner. A blue towel and Ioban dressing was used to block any bowel flow. We started the operation by exploring for any bleeding. There was nothing significant. We then further elevated inferiorly based gluteal fasciocutaneous flaps another 10 cm or so with electrocautery with the aid of a lighted retractor in a plane just superficial to the deep muscle fascia, bilateral gluteus deion muscles. We then with the lighted retractor, elevated the plane just deep to Misha's fascia with a combination of scissors and electrocautery and scalpel technique. There was a significant involvement of bilateral gluteus deion muscles which was nonviable and necrotic, which was debrided by scissors and electrocautery. We then did further debridement of necrotic soft tissue mass from bilateral hips and buttocks. There was 300 square cm of right hip and 180 square cm of left hip necrotic soft tissue mass that was removed. The mass was a benign tumor-like mass on block and this was sent to the laboratory for specimen. We then again debrided the muscles, which was significantly involved with electrocautery and scissor. We then thinned the flaps with curved Ortiz scissors. After doing this and debriding this as much as we could to leave the flaps appropriately thick to minimize wound complications, we ensured hemostasis with electrocautery. We pulse jet lavaged 3 liters of antibiotic irrigation. We then rechecked hemostasis. We then had these three previously elevated and delayed fasciocutaneous flaps, which we now advanced by releasing the deep muscle fascia of the lumbar spine fasciocutaneous flap, which is surviving based on which was perfused on perforating branches of the posterior intercostal arteries. After cutting with electrocautery and then we also cut with electrocautery and released the left and right inferiorly-based gluteal fasciocutaneous flaps of the deep muscle fascia over the gluteus deion muscles, which are based on perforating branches of the inferior gluteal artery. We then had open wounds that were devoid of soft tissue. There was devoid of 180 square cm of left hip and 300 square cm of right hip and 120 square cm of the back. We then made a back cut for some of the soft tissue, rotated and did adjacent tissue transfer, so we did 180 square cm of left hip, 300 square cm of right hip, and 120 square cm of adjacent tissue transfer to close the back open space. We then tailor tacked the skin and accounted for dog ears, and these were excised with a #10 blade. We then placed four drains, 19 Jaspal drains in the dependent position in each buttock and two 10 mm VALERIE's in the superior portion. These were taken out through separate stab incision in the superior lateral back and secured in place with 2-0 silk sutures. We then after ensuring hemostasis with electrocautery and irrigating and removing as much of the foreign material as possible, we then went to advancement flap closure. Again, we had these three previously advanced flaps and we cut the deep muscle fascia, and we advanced some with the progressive tension suturing technique with 0 Vicryl sutures. We also did this underneath the back flaps. We did a lumbar spine fasciocutaneous flap on the left and right inferior gluteal fasciocutaneous flap advancement flap closure. After doing this, we were left with a 30 cm long incision. We used 0 Vicryl to line up and approximate Misha's fascia in interrupted fashion, 2-0 Vicryl to line up and approximate the deep dermis in interrupted fashion, and running 3-0 Monocryl subcuticular layer. After doing this, there was good contour, good capillary refill, and minimal tension on the wound, we secured the Prevena incisional VAC to 125 mmHg. Drains were secured in place and dressed. The patient was flipped over, awoken from anesthesia, and transferred to recovery room in stable condition. Stacie Haas M.D. DR: PHILLIP JOB#: [id number] CC:
--- NOTE | 2018-10-28 17:30 | NUR ---
NURSE NOTES: Patient ambulates hallway x2 with assistance. No respiratory distress noted. No nausea/vomiting noted. Patient in stable condition.
--- NOTE | 2018-10-28 19:24 | NUR ---
HAND-OFF: Report given to JAENT Lim.
--- NOTE | 2018-10-28 19:30 | NUR ---
NURSE NOTES: Received report & pt from JANET Ricketts. Pt lying in bed, a&ox4, in room air. No s/s of acute distress & c/o 5/10 pain at this time. ERADICATOR settings checked with AM nurse. IV site intact with IVF running as ordered. Wound vac intact to continuous suction @ 125 mmHg. Surgical dressing & wound vac dressing C/D/I. VALERIE drains x 4 to bulb suction intact & draining serosanguineous output. Bed in lowest position, ERADICATOR pump & call light within reach. Will continue to monitor Addendum: 10/28/18 at 1937 by Carina Restrepo RN CORRECTION: Received from JANET Rojas.
--- NOTE | 2018-10-28 20:07 | Internal Med Progress Note ---
Subjective Physician Name BrendaSteven chirinos Attending Physician Stacie Haas M.D. Current Medications Medications (Trade) Dose Ordered Sig/Jong Route PRN Reason Start Time Stop Time Status Last Admin Dose Admin Acetaminophen/ Hydrocodone Bitart (Snook 5/325) 1 tab Q1H PRN ORAL Mild Pain (Pain Scale 1-3) 10/28/18 06:30 Ampicillin Sodium/ Sulbactam Sodium 3 gm/Sodium Chloride 110 ml @ 220 mls/hr Q8HR IVPB 10/24/18 14:00 10/31/18 13:59 10/28/18 14:34 Diphenhydramine HCl (Benadryl) 25 mg Q6H PRN IVP Itching/Pruritis 10/28/18 12:04 10/30/18 12:03 Heparin Sodium (Porcine) (Heparin 5000 units/ml) 5,000 units EVERY 8 HOURS SUBQ 10/24/18 14:00 11/23/18 13:59 10/28/18 14:35 Hydromorphone HCl 30 ml @ 0 mls/hr Q24H PRN IV For Pain 10/28/18 10:30 10/30/18 10:29 10/28/18 10:45 Lactated Ringer's 1,000 ml @ 125 mls/hr Q8H IV 10/24/18 08:45 11/23/18 08:44 10/28/18 17:26 Lorazepam (Ativan) 1 mg Q4H PRN ORAL Muscle Spasm 10/28/18 12:04 10/30/18 12:03 Miscellaneous Medication (FERRIS WHEEL OPERATOR Rate Change) 1 ea DAILY PRN MISC rate change 10/28/18 10:30 10/30/18 10:29 Miscellaneous Medication (FERRIS WHEEL OPERATOR shift volume) 1 ea Q12HR@0700,1900 MISC 10/28/18 19:00 10/30/18 18:59 10/28/18 19:15 Naloxone HCl (Narcan) 0.1 mg Q1M PRN IVP RR<10/min OR SBP<90 mmHg 10/28/18 07:15 10/30/18 07:14 Ondansetron HCl (Zofran) 4 mg Q6H PRN IVP Nausea & Vomiting 10/28/18 10:30 10/30/18 10:29 Oxycodone HCl (OxyCONTIN) 10 mg Q12H PRN ORAL Moderate Pain (Pain Scale 4-6) 10/28/18 07:15 11/04/18 07:14 Temazepam (Restoril) 7.5 mg HSPRN PRN ORAL Insomnia 10/28/18 12:04 10/30/18 12:03 Allergies: Coded Allergies: No Known Allergies (Unverified , 10/23/18) All Systems: reviewed and negative except above - mild pain over buttocks Subjective s/p debridement Objective Last Vital Signs Date Time Temp Pulse Resp B/P (MAP) Pulse Ox O2 Delivery O2 Flow Rate FiO2 10/28/18 20:00 18 10/28/18 20:00 98.1 73 107/60 (76) 98 10/28/18 11:30 Nasal Cannula 3.0 General Appearance: alert, mild distress EENT: normal ENT inspection, TMs normal Neck: supple, normal inspection Cardiovascular: normal rate, regular rhythm Respiratory/Chest: lungs clear, normal breath sounds Abdomen: non tender, soft Edema: mild edema Neurologic: alert, oriented x 3 Skin: other - wound vac over gluteal region with 2 drains on right and 2 drains on left Laboratory Tests Test 10/28/18 05:47 White Blood Count 5.7 K/UL (4.8-10.8) Red Blood Count 3.22 M/UL (4.20-5.40) L Hemoglobin 10.2 G/DL (12.0-16.0) L Hematocrit 30.5 % (37.0-47.0) L Mean Corpuscular Volume 95 FL (80-99) Mean Corpuscular Hemoglobin 31.7 PG (27.0-31.0) H Mean Corpuscular Hemoglobin Concent 33.6 G/DL (32.0-36.0) Red Cell Distribution Width 11.5 % (11.6-14.8) L Platelet Count 285 K/UL (150-450) Mean Platelet Volume 6.9 FL (6.5-10.1) Neutrophils (%) (Auto) 60.4 % (45.0-75.0) Lymphocytes (%) (Auto) 24.9 % (20.0-45.0) Monocytes (%) (Auto) 10.0 % (1.0-10.0) Eosinophils (%) (Auto) 3.9 % (0.0-3.0) H Basophils (%) (Auto) 0.9 % (0.0-2.0) Sodium Level 139 MMOL/L (136-145) Potassium Level 4.1 MMOL/L (3.5-5.1) Chloride Level 104 MMOL/L (98-107) Carbon Dioxide Level 29 MMOL/L (21-32) Anion Gap 6 mmol/L (5-15) Blood Urea Nitrogen 9 mg/dL (7-18) Creatinine 0.9 MG/DL (0.55-1.30) Estimat Glomerular Filtration Rate > 60 mL/min (>60) Glucose Level 86 MG/DL (74-106) Calcium Level 8.9 MG/DL (8.5-10.1) Intake and Output 10/27/18 10/28/18 19:00 07:00 Intake Total 1360 ml 1550 ml Output Total 150 ml 110 ml Balance 1210 ml 1440 ml Intake Oral 300 ml IV Total 1360 ml 1250 ml Drainage Total 150 ml 110 ml # Voids 1 3 Assessment/Plan Assessment/Plan ASSESSMENT: Bilateral gluteal and lower back necrotic soft tissue and cellulitis, status post staged debridement of bilateral necrotic gluteal tissue and lower back necrotic soft tissue with wound VAC placement s/p debridement and wound closure PLAN: 1. Med/Surg. 2. Plastic Surgery following. 3. IV fluids 4. The patient's pain is under control with FERRIS WHEEL OPERATOR pump. transition to PO percocet 5. Antibiotics - ampicillin/sulbactam. 6. DC planning on WEd AM w/ Cipro 500mg PO BID x 14 days and 30 Percocet Steven Coles MD Oct 28, 2018 20:07
--- NOTE | 2018-10-28 21:15 | NUR ---
NURSE NOTES: Ambulated in hallway with RN assistance; tolerated very well with steady gait. No acute distress noted.
[2018-10-29] VITALS: BP 109/61
[2018-10-29 04:00] VITALS: BP 121/54
[2018-10-29] MEDS: Heparin 5000 units/ml inj SUBQ SCH ×3 (05:55→21:51)
[2018-10-29] MEDS: Ampicillin/Sulbactam Sod 3 GM in NS 110 ML IVPB SCH ×3 (05:55→21:49)
[2018-10-29] MEDS: PCA shift volume MISC SCH ×2 (07:12→19:00)
[2018-10-29 07:18] LABS: ANION GAP 6 mmol/L (5-15); BLOOD UREA NITROGEN 11 mg/dL (7-18); CALCIUM 8.7 MG/DL (8.5-10.1); CARBON DIOXIDE 29 MMOL/L (21-32); CHLORIDE 106 MMOL/L (98-107); POTASSIUM 4.1 MMOL/L (3.5-5.1); SODIUM 141 MMOL/L (136-145)
[2018-10-29 07:19] LABS: BASOPHILS % (AUTO) 0.5 % (0.0-2.0); EOSINOPHILS % (AUTO) 0.1 % (0.0-3.0); HEMATOCRIT 25.9 % (37.0-47.0); HEMOGLOBIN 8.9 G/DL (12.0-16.0); LYMPHOCYTES % (AUTO) 18.1 % (20.0-45.0); MEAN CORPUSCULAR VOLUME 94 FL (80-99); MONOCYTES % (AUTO) 9.9 % (1.0-10.0); NEUTROPHILS % (AUTO) 71.4 % (45.0-75.0); PLATELET COUNT 297 K/UL (150-450); RED BLOOD COUNT 2.75 M/UL (4.20-5.40); RED CELL DISTRIBUTION WIDTH 11.8 % (11.6-14.8); WHITE BLOOD COUNT 9.7 K/UL (4.8-10.8)
--- NOTE | 2018-10-29 07:30 | NUR ---
HAND-OFF: Report given to Nataly GONZALES.
[2018-10-29 08:00] VITALS: BP 105/66
--- NOTE | 2018-10-29 08:10 | NUR ---
NURSE NOTES: Pt in bed a/o x 4 laying on stomach. Pt has patent drains with serosanguineous drainage total of #4. to left lateral flank #3, 4. To right latrel flank #1,2. Wound VAC to posterior buttock is well adhered, GranuFoam in place, no signs of leakage. Vac set at 125mmg continuous suction. SENIOR LABORATORY TECHNICIAN at bedside. Pt re-educated on use. Pt left in bed in low position, call light within reach, skid socks on, IS at bedside. Discussed with pt POC.
--- NOTE | 2018-10-29 08:20 | NUR ---
Called Dr. Jaime Nash office to notify of HGB 8.9, hct 25.9. Unable to reach Dr. Fareed SESAY to return my call. Addendum: 10/29/18 at 1032 by Nataly Gallegos RN @[phone] Sandoval, per him monitor and notify Dr. Marie. Spoke to Dr. Marie, notified of hgb, hct above. No new orders given, pt denies SOB, chest pain, dizziness. Will continue to monitor.
[2018-10-29] MEDS: LR 1000ml 1,000 ML IV SCH (08:45)
--- NOTE | 2018-10-29 11:53 | 48 Hour Post Anesthesia Eval ---
Post Anesthesia Evaluation Procedure: Bilateral Buttock Closure, Stage 2 Date of Evaluation: Oct 29, 2018 Time of Evaluation: 11:51 Blood Pressure Systolic: 105 0: 56 Pulse Rate: 72 Respiratory Rate: 20 Temperature (Fahrenheit): 97.6 O2 Sat by Pulse Oximetry: 98 Airway: patent Nausea: No Vomiting: No Pain Intensity: 3 Hydration Status: adequate Cardiopulmonary Status: stable Mental Status/LOC: patient returned to baseline Follow-up Care/Observations: n/a Post-Anesthesia Complications: none Follow-up care needed: N/A Filipe Renteria MD Oct 29, 2018 11:53
[2018-10-29 12:00] VITALS: BP 113/69
--- NOTE | 2018-10-29 15:10 | NUR ---
*-* INSURANCE ALL CLINICALS AND REVIEWS FAXED TO: ELISEO ENCISO; MORRO Marsh F: [phone]
[2018-10-29 16:00] VITALS: BP 100/68
--- NOTE | 2018-10-29 16:06 | NUR ---
CASE MANAGEMENT: REVIEW SI: BILATERAL BUTTOCK CELLULITIS BILATERAL BUTTOCK CLOSURE, STAGE 2 10/29 I&D BILATERAL BUTTOCK 10/24 T 98.6 HR 82 RR 18 BP 121/54 SAT 96% ROOM AIR H/H 8.9/25.9 IS: GRAIN ORIGINATION SPECIALIST DILAUDID UNASYN IV Q8HR MED/SURG STATUS DCP: PATIENT IS FROM HOME
--- NOTE | 2018-10-29 16:23 | NUR ---
@0945 ambulated pt around unit, pt toleratd well, steady gait, minimal assist. Wound VAC suctions at 125mmhg, drains patent suctioning, sealed tight. @1600, ambulated pt around unit with minimal assist, pt dorothy well, steady gait. Wound VAC suctioning, set at 125mmhg. No signs or infection, no erythema, no odor, no temperature. Drains sutured to flanks draining serosanguineous drainage. Will continue to monitor.
--- NOTE | 2018-10-29 18:37 | NUR ---
Pt c/o feeing lightheaded s/p standing. Explained to pt potential side effect of Dilaudid and standing after being in prone position. Checked VS, all WNL O2 sat 100%, temp 98.8, BP 107/73 HR 65, pt denies SOB, chest pain. Will continue to monitor and endorse to PM nurse.
--- NOTE | 2018-10-29 19:02 | Internal Med Progress Note ---
Subjective Physician Name BrendaSteven chirinos Attending Physician Stacie Haas M.D. Current Medications Medications (Trade) Dose Ordered Sig/Jong Route PRN Reason Start Time Stop Time Status Last Admin Dose Admin Acetaminophen/ Hydrocodone Bitart ([place]tis 5/325) 1 tab Q1H PRN ORAL Mild Pain (Pain Scale 1-3) 10/28/18 06:30 Ampicillin Sodium/ Sulbactam Sodium 3 gm/Sodium Chloride 110 ml @ 220 mls/hr Q8HR IVPB 10/24/18 14:00 10/31/18 13:59 10/29/18 14:19 Diphenhydramine HCl (Benadryl) 25 mg Q6H PRN IVP Itching/Pruritis 10/28/18 12:04 10/30/18 12:03 Heparin Sodium (Porcine) (Heparin 5000 units/ml) 5,000 units EVERY 8 HOURS SUBQ 10/24/18 14:00 11/23/18 13:59 10/29/18 14:20 Hydromorphone HCl 30 ml @ 0 mls/hr Q24H PRN IV For Pain 10/28/18 10:30 10/30/18 10:29 10/28/18 10:45 Lorazepam (Ativan) 1 mg Q4H PRN ORAL Muscle Spasm 10/28/18 12:04 10/30/18 12:03 Miscellaneous Medication (PARTS BACK COUNTER MAN Rate Change) 1 ea DAILY PRN MISC rate change 10/28/18 10:30 10/30/18 10:29 Miscellaneous Medication (PARTS BACK COUNTER MAN shift volume) 1 ea Q12HR@0700,1900 MISC 10/28/18 19:00 10/30/18 18:59 10/29/18 07:12 Naloxone HCl (Narcan) 0.1 mg Q1M PRN IVP RR<10/min OR SBP<90 mmHg 10/28/18 07:15 10/30/18 07:14 Ondansetron HCl (Zofran) 4 mg Q6H PRN IVP Nausea & Vomiting 10/28/18 10:30 10/30/18 10:29 10/29/18 14:21 Oxycodone HCl (OxyCONTIN) 10 mg Q12H PRN ORAL Moderate Pain (Pain Scale 4-6) 10/28/18 07:15 11/04/18 07:14 Temazepam (Restoril) 7.5 mg HSPRN PRN ORAL Insomnia 10/28/18 12:04 10/30/18 12:03 10/28/18 23:57 Allergies: Coded Allergies: No Known Allergies (Unverified , 10/23/18) Subjective in no severe pain no CP or SOB Objective Last Vital Signs Date Time Temp Pulse Resp B/P (MAP) Pulse Ox O2 Delivery O2 Flow Rate FiO2 10/29/18 16:20 17 10/29/18 16:00 98.7 76 100/68 (79) 96 10/29/18 09:00 Room Air 10/28/18 11:30 3.0 General Appearance: no apparent distress, alert, mild distress EENT: PERRL/EOMI, normal ENT inspection Neck: normal alignment, supple Cardiovascular: normal rate, regular rhythm Respiratory/Chest: lungs clear, normal breath sounds Abdomen: non tender, soft Edema: trace edema, mild edema Neurologic: abnormal gait, alert Laboratory Tests Test 10/29/18 05:10 White Blood Count 9.7 K/UL (4.8-10.8) # Red Blood Count 2.75 M/UL (4.20-5.40) L Hemoglobin 8.9 G/DL (12.0-16.0) L Hematocrit 25.9 % (37.0-47.0) L Mean Corpuscular Volume 94 FL (80-99) Mean Corpuscular Hemoglobin 32.3 PG (27.0-31.0) H Mean Corpuscular Hemoglobin Concent 34.3 G/DL (32.0-36.0) Red Cell Distribution Width 11.8 % (11.6-14.8) Platelet Count 297 K/UL (150-450) Mean Platelet Volume 6.7 FL (6.5-10.1) Neutrophils (%) (Auto) 71.4 % (45.0-75.0) Lymphocytes (%) (Auto) 18.1 % (20.0-45.0) L Monocytes (%) (Auto) 9.9 % (1.0-10.0) Eosinophils (%) (Auto) 0.1 % (0.0-3.0) Basophils (%) (Auto) 0.5 % (0.0-2.0) Sodium Level 141 MMOL/L (136-145) Potassium Level 4.1 MMOL/L (3.5-5.1) Chloride Level 106 MMOL/L (98-107) Carbon Dioxide Level 29 MMOL/L (21-32) Anion Gap 6 mmol/L (5-15) Blood Urea Nitrogen 11 mg/dL (7-18) Creatinine 1.0 MG/DL (0.55-1.30) Estimat Glomerular Filtration Rate > 60 mL/min (>60) Glucose Level 96 MG/DL (74-106) Calcium Level 8.7 MG/DL (8.5-10.1) Intake and Output 10/28/18 10/29/18 19:00 07:00 Intake Total 1965 ml 1850 ml Output Total 400 ml 175 ml Balance 1565 ml 1675 ml Intake Oral 540 ml 350 ml IV Total 1425 ml 1500 ml Drainage Total 250 ml 175 ml Estimated Blood Loss 150 ml # Voids 3 4 Assessment/Plan Assessment/Plan ASSESSMENT: Bilateral gluteal and lower back necrotic soft tissue and cellulitis, status post staged debridement of bilateral necrotic gluteal tissue and lower back necrotic soft tissue with wound VAC placement s/p debridement and wound closure PLAN: 1. Med/Surg. 2. Plastic Surgery following. 3. IV fluids 4. The patient's pain is under control with PARTS BACK COUNTER MAN pump. transition to PO percocet 5. Antibiotics - ampicillin/sulbactam. 6. DC planning tomorrow AM w/ Cipro 500mg PO BID x 14 days and 30 Percocet tabs Steven Marie MD Oct 29, 2018 19:02
--- NOTE | 2018-10-29 19:46 | NUR ---
HAND-OFF: Report given to JANET Garcia. Pt left in stable condition, a/o x 4. Wound VAC in place, VALERIE drain tubes patent. MACHINE GRINDER dialudid at bedside. Call light within reach, skid socks on, bed in low position.
[2018-10-29 20:00] VITALS: BP 109/72
[2018-10-30] VITALS: BP 93/58
[2018-10-30 04:00] VITALS: BP 97/65
[2018-10-30] MEDS: Ampicillin/Sulbactam Sod 3 GM in NS 110 ML IVPB SCH ×2 (05:54→14:00)
[2018-10-30] MEDS: Heparin 5000 units/ml inj SUBQ SCH ×2 (05:55→14:00)
[2018-10-30 06:43] LABS: BASOPHILS % (AUTO) 0.9 % (0.0-2.0); HEMATOCRIT 26.6 % (37.0-47.0); HEMOGLOBIN 8.7 G/DL (12.0-16.0); MEAN CORPUSCULAR VOLUME 96 FL (80-99); MONOCYTES % (AUTO) 9.9 % (1.0-10.0); NEUTROPHILS % (AUTO) 59.1 % (45.0-75.0); PLATELET COUNT 282 K/UL (150-450); RED BLOOD COUNT 2.76 M/UL (4.20-5.40); RED CELL DISTRIBUTION WIDTH 11.8 % (11.6-14.8); WHITE BLOOD COUNT 9.4 K/UL (4.8-10.8)
[2018-10-30 06:58] LABS: ANION GAP 7 mmol/L (5-15); BLOOD UREA NITROGEN 13 mg/dL (7-18); CALCIUM 8.6 MG/DL (8.5-10.1); CARBON DIOXIDE 29 MMOL/L (21-32); CHLORIDE 105 MMOL/L (98-107); CREATININE 0.9 MG/DL (0.55-1.30); SODIUM 140 MMOL/L (136-145)
[2018-10-30] MEDS: PCA shift volume MISC SCH (07:00)
[2018-10-30 08:00] VITALS: BP 118/73
--- NOTE | 2018-10-30 08:37 | NUR ---
HAND-OFF: Report given to JANET Villagomez.
[2018-10-30 12:00] VITALS: BP 119/66
[2018-10-30] MEDS ORDERED: PERCOCET 10-321 EAC1 PO (13:58)
[2018-10-30] MEDS ORDERED: CIPRO500 MG PO (13:58)
[2018-10-30] MEDS ORDERED: NS 275ml ONE (14:24)
[2018-10-30] MEDS ORDERED: NS 500ML ONE (14:24)
--- NOTE | 2018-10-30 14:53 | NUR ---
NURSE NOTES: Patient discharged to home, accompanied by boyfriend. CAPACITOR REPAIRER assisted the patient down, patient ambulated independently. Patient in stable condition, alert and oriented. Denies s/s of respiratory distress. Belongings reviewed and confirmed with the patient at bedside. IV site safely removed. Wound vac provided for the patient to take home.
--- NOTE | 2018-10-31 14:03 | Discharge Summary ---
Discharge Summary Discharge Summary _ DATE OF ADMISSION: 10/24/2018 DATE OF DISCHARGE: 10/30/2018 DISCHARGED BY: Dr. Steven Marie SURGEON: Dr. Stacie Haas BRIEF HOSPITAL COURSE: Patient is a 28-year-old female, with history of silicone injection over her gluteal area with chronic lower back pain, was admitted for a staged debridement bilateral buttock and back necrotic soft tissue cellulitis. On October 24, 2018, she underwent stage partial removal of foreign material from bilateral buttocks, back and hips. She had extensive debridement of bilateral necrotic soft tissue; and wound VAC was placed in bilateral buttocks. (Refer to operative report). She was admitted for postop care. She was continued on IV antibiotics and was placed on HYDROPULPER Dilaudid for pain control. She was advised frequent position changes. She was encouraged OOB. She was placed on SCDs for DVT prophylaxis. On October 28, 2018, she underwent second stage debridement of necrotic soft tissue from bilateral buttocks as well as fasciocutaneous advancement flap/ adjacent tissue transfer closure over drains. She tolerated procedure well. ( Refer to operative report ). She had 2 drains on right and 2 drains on the left gluteal region. Pain management was transitioned to p.o. Percocet. She had good pain control and was eventually discharged home to continue ciprofloxacin 500 mg p.o. twice daily for 2 weeks. FINAL DIAGNOSES: Bilateral gluteal and lower back necrotic soft tissue and cellulitis Status post staged debridement of bilateral necrotic gluteal tissue and necrotic soft tissue placement status post debridement and wound closure DISPOSITION: Patient was discharged home. DISCHARGE MEDICATIONS: Refer to Discharge Medication List. DISCHARGE INSTRUCTIONS: Follow-up in a week. I have been assigned to dictate discharge summary on this account, and I was not involved in the patient's management. Joanna Bourgeois NP Oct 31, 2018 14:03
== END 2018-10-30 14:25 | disposition home or self-care (01) | DRG 580 ==
LOC: SDSOVERFLO 05:37 → 3E 10:15
PROC: 0KCP0ZZ Extirpation of Matter from Left Hip Muscle, Open Approach (ICD-10-PCS; principal; 2018-10-24 07:00)
PROC: 0H86XZZ Division of Back Skin, External Approach (ICD-10-PCS; principal; 2018-10-24 07:00)
PROC: 0KCF0ZZ Extirpation of Matter from Right Trunk Muscle, Open Approach (ICD-10-PCS; principal; 2018-10-24 07:00)
PROC: 0KBG0ZZ Excision of Left Trunk Muscle, Open Approach (ICD-10-PCS; principal; 2018-10-24 07:00)
PROC: 0KCG0ZZ Extirpation of Matter from Left Trunk Muscle, Open Approach (ICD-10-PCS; principal; 2018-10-24 07:00)
PROC: 0KBN0ZZ Excision of Right Hip Muscle, Open Approach (ICD-10-PCS; principal; 2018-10-24 07:00)
PROC: 0KCN0ZZ Extirpation of Matter from Right Hip Muscle, Open Approach (ICD-10-PCS; principal; 2018-10-24 07:00)
PROC: 0H88XZZ Division of Buttock Skin, External Approach (ICD-10-PCS; principal; 2018-10-24 07:00)
PROC: 0KBP0ZZ Excision of Left Hip Muscle, Open Approach (ICD-10-PCS; principal; 2018-10-24 07:00)
PROC: 0KBF0ZZ Excision of Right Trunk Muscle, Open Approach (ICD-10-PCS; principal; 2018-10-24 07:00)
PROC: 0KCP0ZZ Extirpation of Matter from Left Hip Muscle, Open Approach (ICD-10-PCS; 2018-10-28)
PROC: 0JX90ZZ Transfer Buttock Subcutaneous Tissue and Fascia, Open Approach (ICD-10-PCS; 2018-10-28)
PROC: 0KBP0ZZ Excision of Left Hip Muscle, Open Approach (ICD-10-PCS; 2018-10-28)
PROC: 0KBN0ZZ Excision of Right Hip Muscle, Open Approach (ICD-10-PCS; 2018-10-28)
PROC: 0KCN0ZZ Extirpation of Matter from Right Hip Muscle, Open Approach (ICD-10-PCS; 2018-10-28)
PROC: 0JX70ZZ Transfer Back Subcutaneous Tissue and Fascia, Open Approach (ICD-10-PCS; 2018-10-28)
DX: L03.317 Cellulitis of buttock (principal); L03.312 Cellulitis of back [any part except buttock and flank]; I96 Gangrene, not elsewhere classified; M79.5 Residual foreign body in soft tissue; G89.29 Other chronic pain; M54.5 Low back pain
CPT/HCPCS: 36415; 80048; 81025; 85025; 86850; 86900; 86901; 87081; 94003; 94150; J2405; J2710; J2765

== ENCOUNTER 2018-11-02 21:28 | Emergency (ER) | payer OTHER ==
[~2018-11-02] VITALS: Ht 152.4 cm; Wt 54.4 kg
[~2018-11-02 21:28] MED LIST changes: +CIPRO500 MG PO; +PERCOCET 10-321 EAC1 PO
[2018-11-02 21:45] VITALS: BP 113/86
--- NOTE | 2018-11-02 22:00 | NUR ---
ED Nurse Note: RECIEVED PT FROM HOME WITH C/O SYNCOPAL EPISODE AND INCREASED PAIN TO BILAT BUTTOCKS S/P IMPLANT REMOVAL 1 WEEK AGO, PT HAD F/U WITH SURGEON TODAY AND STATES 1 DRAIN WAS REMOVED, SHE WENT HOME WITH NO S/S THEN HAS SYNCOPAL EPISODE IN BATHROOM WITH LOSS OF CONSCIOUSNESS, PT DENEIS K.O. OR INJURY BUT STATES SHE DID FALL, PT HAS 2 VALERIE DRAINS TO LEFT AND RIGHT BUTTOCK WITH MINIMAL DRAINAGE, SEROUSSANGENOUS, PT DENEIS ANY OTHER COMPLAINTS, DISCOMFORTS OR INJURIES, TP ASSISTED TO GOWNING AND PLACED ON CARDIAC MONITORING, PT CAN ONLY LYE ON STOMACH PER MD ORDERS AND COMFORT PT DENEIS CP BUT DID C/O SOB WHICH APPEARS TO BE RESOLVED, PT MAY HAVE INSREASED ANXIETY
[2018-11-02 22:30] VITALS: BP 107/64
[2018-11-02 22:30] LABS: BASOPHILS % (AUTO) 0.9 % (0.0-2.0); EOSINOPHILS % (AUTO) 1.9 % (0.0-3.0); HEMATOCRIT 27.8 % (37.0-47.0); HEMOGLOBIN 9.4 G/DL (12.0-16.0); LYMPHOCYTES % (AUTO) 11.1 % (20.0-45.0); MEAN CORPUSCULAR VOLUME 95 FL (80-99); MONOCYTES % (AUTO) 9.9 % (1.0-10.0); NEUTROPHILS % (AUTO) 76.3 % (45.0-75.0); PLATELET COUNT 399 K/UL (150-450); RED BLOOD COUNT 2.94 M/UL (4.20-5.40); RED CELL DISTRIBUTION WIDTH 12.3 % (11.6-14.8); WHITE BLOOD COUNT 10.8 K/UL (4.8-10.8)
[2018-11-02] MEDS ORDERED: Isovue-370 150ml vial INJ PRN (22:30)
[2018-11-02 22:41] LABS: ANION GAP 9 mmol/L (5-15); BLOOD UREA NITROGEN 13 mg/dL (7-18); CALCIUM 8.9 MG/DL (8.5-10.1); CARBON DIOXIDE 27 MMOL/L (21-32); CHLORIDE 100 MMOL/L (98-107); SODIUM 136 MMOL/L (136-145)
[2018-11-02] MEDS ORDERED: Morphine Sulfate 4mg/ml Inj (IV USE ONLY) IVP ONE (22:45)
[2018-11-02 22:48] LABS: ALANINE AMINOTRANSFERASE 51 U/L (12-78); ALBUMIN 3.5 G/DL (3.4-5.0); ALBUMIN/GLOBULIN RATIO 1.2 (1.0-2.7); ALKALINE PHOSPHATASE 39 U/L (46-116); ASPARTATE AMINO TRANSFERASE 20 U/L (15-37); BILIRUBIN,TOTAL 0.2 MG/DL (0.2-1.0); CREATINE KINASE 134 U/L (26-308)
[2018-11-02 23:07] LABS: APPEARANCE,URINE CLEAR; BILIRUBIN, URINE NEGATIVE (NEGATIVE); COLOR,URINE PALE YELLOW; GLUCOSE, URINE (UA) NEGATIVE (NEGATIVE); KETONES,URINE NEGATIVE (NEGATIVE); LEUKOCYTE ESTERASE ,URINE NEGATIVE (NEGATIVE); NITRITE,URINE NEGATIVE (NEGATIVE); PH,URINE 6.5 (4.5-8.0); PROTEIN,URINE NEGATIVE (NEGATIVE); UROBILINOGEN,URINE NORMAL MG/DL (0.0-1.0)
[2018-11-02 23:38] LABS: CKMB 1.3 NG/ML (0.0-3.6)
--- NOTE | 2018-11-03 00:15 | NUR ---
ED Nurse Note: PT MEDICATED FOR PAIHN, MEDS EFFECTIVE, PAIN LEVEL DECREASED TO 5/10, PT IN BED TECTING ON PHONE, WAITING FOR IMAGING TO BE DFONE, WILL CONTINUE TO CLOSELY MONITOR, NO SOB OR LABORED BREATHING NOTED, O2 SAT=99% ON RA.
[2018-11-03 01:45] VITALS: BP 119/71
--- NOTE | 2018-11-03 01:50 | NUR ---
ED Nurse Note: PT BEING D/C TO HOME, PT IS AWAKE, ALERT AND ORIENTED X 4, AMBULATORY, NO CP, NO SOB, PT IS CALM AND RELAXED, V/S STABLE, PT GIVEN F/U INFO AND AFTER CARE INSTRUCTIONS, ALSO RE-VERBALIZES S/S TO CONTINUE TO MONTIOR FOR, PT LEAVING VIA UBER FOR TRANSPORTATION, IV LINE AND ARMBAND REMOVED WITHOUT COMPLICATIONS, NAD NOTED.
[2018-11-03 02:00] VITALS: BP 119/71
--- NOTE | 2018-11-03 02:38 | Emergency Room Report ---
History of Present Illness General Chief Complaint: Dyspnea/Respdistress Source: Patient Present Illness HPI 28-year-old female presents ED for evaluation. Patient states that she is status post silicone injection removal from her buttock and debridement. Patient was just discharged from hospital. States that she went to the plastic surgeon today and had her wound VAC removed. Patient states she was changing her dressings today when she started to feel short of breath and dizzy. States she nearly passed out. Upon arrival patient states she is feeling short of breath. Feels weak and lightheaded. Denies chest pain. Denies fevers or chills. Denies cough. Denies leg swelling. No other aggravating relieving factors. Denies any other associated symptoms Allergies: Coded Allergies: No Known Allergies (Unverified , 10/23/18) Patient History Past Medical History: none Past Surgical History: other - debridement of buttock Pertinent Family History: none Social History: Denies: smoking, alcohol use, drug use Last Menstrual Period: 10/22/2017 Now: No Immunizations: UTD Reviewed Nursing Documentation: PMH: Agreed; PSxH: Agreed Nursing Documentation-PMH Past Medical History: No History, Except For Hx Cardiac Problems: No Hx Cancer: No Hx Gastrointestinal Problems: No Hx Neurological Problems: No Review of Systems All Other Systems: negative except mentioned in HPI Physical Exam Vital Signs Date Time Temp Pulse Resp B/P (MAP) Pulse Ox O2 Delivery O2 Flow Rate FiO2 11/02/18 21:33 136 16 123/64 100 Room Air 11/02/18 22:30 98.8 Sp02 EP Interpretation: reviewed, normal General Appearance: no apparent distress, alert, GCS 15, non-toxic Head: normocephalic Eyes: bilateral eye normal inspection, bilateral eye PERRL ENT: normal ENT inspection Neck: normal inspection Respiratory: chest non-tender, lungs clear, normal breath sounds, speaking full sentences Cardiovascular #1: regular rate, rhythm, no edema Gastrointestinal: normal bowel sounds, non tender, soft, non-distended, no guarding, no rebound Rectal: deferred Genitourinary: no CVA tenderness Musculoskeletal: normal inspection Neurologic: alert, oriented x3, responsive, motor strength/tone normal, sensory intact, speech normal Psychiatric: normal inspection Skin: other - VALERIE drains in bilateral buttocks Lymphatic: normal inspection Medical Decision Making Diagnostic Impression: Primary Impression: Vasovagal episode Additional Impressions: Cellulitis of buttock, left Cellulitis of buttock, right ER Course Hospital Course 28-year-old F presents ED complaining of dizziness, SOB. s/p cellulitis of buttock with debridement Differential diagnoses include: FL/unstable angina, PE, vasovagal, anemia Clinical course Patient placed on stretcher. After initial history and physical I ordered labs , EKG, chest x-ray. labs reviewed- all electrolytes normal, troponins negative, no leukocytosis, hemoglobin/hematocrit stable EKG - NSR, no acute ischemic changes interpreted by me Chest x-ray-no cardiomegaly, no rib fracture, no pneumothorax, no acute process Consideration for PE given recent surgical history. CTA ordered CTA negative for PE Discussed findings with patient. Reassurance given. Safe for discharge and close outpatient follow-up Discussed with Dr Roa (admitting physician) and Dr Haas (plastics); they both agreed patient can be safely discharged to home I. I feel this is a highly complex case requiring extensive working including EKG/Rhythm strip, Xray/CT/US, Blood/urine lab work, repeat exams while in ED, and administration of strong opiates/narcotics for pain control, admission to hospital or close patient follow up. Diagnosis - vasovagal episode, cellulitis of buttocks Stable and discharged to home. Instructed to followup with PMD. Return to ED if symptoms recur or worsen Labs Test 11/02/18 22:05 11/02/18 22:20 White Blood Count 10.8 K/UL (4.8-10.8) Red Blood Count 2.94 M/UL (4.20-5.40) Hemoglobin 9.4 G/DL (12.0-16.0) Hematocrit 27.8 % (37.0-47.0) Mean Corpuscular Volume 95 FL (80-99) Mean Corpuscular Hemoglobin 32.0 PG (27.0-31.0) Mean Corpuscular Hemoglobin Concent 33.8 G/DL (32.0-36.0) Red Cell Distribution Width 12.3 % (11.6-14.8) Platelet Count 399 K/UL (150-450) Mean Platelet Volume 6.3 FL (6.5-10.1) Neutrophils (%) (Auto) 76.3 % (45.0-75.0) Lymphocytes (%) (Auto) 11.1 % (20.0-45.0) Monocytes (%) (Auto) 9.9 % (1.0-10.0) Eosinophils (%) (Auto) 1.9 % (0.0-3.0) Basophils (%) (Auto) 0.9 % (0.0-2.0) Sodium Level 136 MMOL/L (136-145) Potassium Level 4.0 MMOL/L (3.5-5.1) Chloride Level 100 MMOL/L (98-107) Carbon Dioxide Level 27 MMOL/L (21-32) Anion Gap 9 mmol/L (5-15) Blood Urea Nitrogen 13 mg/dL (7-18) Creatinine 1.0 MG/DL (0.55-1.30) Estimat Glomerular Filtration Rate > 60 mL/min (>60) Glucose Level 90 MG/DL (74-106) Calcium Level 8.9 MG/DL (8.5-10.1) Total Bilirubin 0.2 MG/DL (0.2-1.0) Aspartate Amino Transf (AST/SGOT) 20 U/L (15-37) Alanine Aminotransferase (ALT/SGPT) 51 U/L (12-78) Alkaline Phosphatase 39 U/L (46-116) Total Creatine Kinase 134 U/L (26-308) Creatine Kinase MB 1.3 NG/ML (0.0-3.6) Creatine Kinase MB Relative Index 0.9 Troponin I 0.016 ng/mL (0.000-0.056) Total Protein 6.4 G/DL (6.4-8.2) Albumin 3.5 G/DL (3.4-5.0) Globulin 2.9 g/dL Albumin/Globulin Ratio 1.2 (1.0-2.7) Urine Color Pale yellow Urine Appearance Clear Urine pH 6.5 (4.5-8.0) Urine Specific [place] 1.005 (1.005-1.035) Urine Protein Negative (NEGATIVE) Urine Glucose (UA) Negative (NEGATIVE) Urine Ketones Negative (NEGATIVE) Urine Blood Negative (NEGATIVE) Urine Nitrite Negative (NEGATIVE) Urine Bilirubin Negative (NEGATIVE) Urine Urobilinogen Normal MG/DL (0.0-1.0) Urine Leukocyte Esterase Negative (NEGATIVE) Urine HCG, Qualitative Negative (NEGATIVE) EKG Diagnostic Results Rate: normal Rhythm: NSR ST Segments: no acute changes ASA given to the pt in ED: No Rhythm Strip Diag. Results EP Interpretation: yes Rhythm: NSR, no PVC's, no ectopy Chest X-Ray Diagnostic Results Chest X-Ray Diagnostic Results : Chest X-Ray Ordered: Yes # of Views/Limited/Complete: 1 View Indication: Shortness of Breath EP Interpretation: Yes Interpretation: no consolidation, no effusion, no pneumothorax, no acute cardiopulmonary disease Impression: No acute disease Electronically Signed by: Electronically signed by Johnny Rivera MD CT/MRI/US Diagnostic Results CT/MRI/US Diagnostic Results : Imaging Test Ordered: CTA Chest Impression no evidence of PE Last Vital Signs Date Time Temp Pulse Resp B/P (MAP) Pulse Ox O2 Delivery O2 Flow Rate FiO2 11/03/18 02:00 98.7 82 16 119/71 100 Room Air Status: improved Disposition: HOME, SELF-CARE Condition: Stable Referrals: Steven Marie MD, Tansar M.D. NON PHYSICIAN (PCP) Patient Instructions: Vasovagal Syncope, Adult Johnny Rivera MD Nov 03, 2018 02:38
--- NOTE | 2018-11-13 18:58 | Cardiology Report ---
APPROVED REPORT EKG Measurement Heart [id number] Normal sinus rhythm Normal ECG
== END 2018-11-03 02:00 | disposition home or self-care (01) ==
LOC: EMR 21:47
DX: R42 Dizziness and giddiness (principal); L03.317 Cellulitis of buttock; R06.02 Shortness of breath
CPT/HCPCS: 36415; 71045; 71275; 80053; 81003; 81025; 82550; 82553; 84484; 85025; 93005; 96361; 96374; 99284; J2270; Q9967